=== PATIENT | female | born 1940 | race Caucasian/White ===

== ENCOUNTER 2023-01-28 09:35 | Emergency (ER) | payer OTHER, MEDICARE ==
[2023-01-28 09:56] VITALS: BP 122/57; PULSE 64; RESP 17; TEMP 97.9; BMI 23.8
[2023-01-28] MEDS ORDERED: LIDOCAINE HCL 2% (20ML MULTI-DOSE VIAL) ONE (10:29)
[2023-01-28] MEDS: LIDOCAINE HCL 2% (50ML VIAL) SQ ONE (10:39)
[2023-01-28] MEDS ORDERED: DIPHTH,PERTUSS(ACELL),TET 0.5 ML DISP.SYRIN IM ONE ×2 (10:40→10:43)
[2023-01-28] MEDS ORDERED: ACETAMINOPHEN 500 MG TABLET (FP) PO ONE (12:17)
[2023-01-28] MEDS ORDERED: ACETAMINOPHEN 500 MG TABLET (FP) ONE (12:19)
== END 2023-01-28 12:39 | disposition home or self-care (01) ==
LOC: JER 09:35
PROC: 0HQFXZZ Repair Right Hand Skin, External Approach (ICD-10-PCS; principal; 2023-01-28)
PROC: 3E0234Z Introduction of Serum, Toxoid and Vaccine into Muscle, Percutaneous Approach (ICD-10-PCS; 2023-01-28)
DX: S62.644A Nondisplaced fracture of proximal phalanx of right ring finger, initial encounter for closed fracture (principal); M79.641 Pain in right hand; R22.31 Localized swelling, mass and lump, right upper limb; W01.0XXA Fall on same level from slipping, tripping and stumbling without subsequent striking against object, initial encounter
CPT/HCPCS: 12002-25; 73110-TC-RT-FY; 73130-TC-RT-FY; 73140-TC-RT-FY; 90471; 90715; 93005; 93010; 99284-25